=== PATIENT | female | born 1995 ===

== ENCOUNTER 2017-07-13 09:04 | Emergency (ER) | payer MEDICAID ==
[2017-07-13 09:10] VITALS: BMI 23.4
[2017-07-13 09:29] VITALS: BP 118/77
--- NOTE | 2017-07-13 09:38 | ED PDOC ---
HPI: CCC, URI, Sore Throat Time Seen by Provider: 07/13/17 09:07 Chief Complaint (Nursing): Flu-like Symptoms Chief Complaint (Provider): Cough History Per: Patient History/Exam Limitations: no limitations Onset/Duration Of Symptoms: Days (2) Additional Complaint(s): Pt. with cough, congestion, runny nose, body aches, weakness all over. No headaches, neck pain, vision changes, abd pain, dysuria. Took 1 ibuprofen at home last night that made the fever go to 98. No dyspnea or chest pain. Past Medical History Reviewed: Nursing Documentation, Vital Signs Vital Signs: Last Vital Signs Temp 98.6 F 07/13/17 14:09 Pulse 111 H 07/13/17 14:09 Resp 16 07/13/17 14:09 BP 118/77 07/13/17 09:11 Pulse Ox 98 07/13/17 14:28 - Medical History PMH: No Chronic Diseases - Surgical History Surgical History: No Surg Hx - Family History Family History: States: Unknown Family Hx - Living Arrangements Living Arrangements: With Family - Social History Alcohol: None Drugs: Denies - Home Medications Home Medications: Ambulatory Orders Medication Instructions Recorded Benzonatate [Tessalon Perles] 100 mg PO BID PRN 5 Days sgl 07/13/17 Ibuprofen [Motrin] 600 mg PO TID 7 Days tab 07/13/17 Oseltamivir Phosphate [Tamiflu] 75 mg PO BID 5 Days capsule 07/13/17 - Allergies Allergies/Adverse Reactions: Allergies Allergy/AdvReac Type Severity Reaction Status Date / Time No Known Allergies Allergy Verified 07/13/17 09:34 Review of Systems ROS Statement: Except As Marked, All Systems Reviewed And Found Negative Constitutional: Positive for: Fever, Weakness ENT: Positive for: Nose Pain, Nose Discharge, Nose Congestion, Throat Pain Respiratory: Positive for: Cough. Negative for: Shortness of Breath Gastrointestinal: Negative for: Nausea, Vomiting, Abdominal Pain, Diarrhea Genitourinary Female: Negative for: Dysuria Skin: Negative for: Rash Neurological: Positive for: Weakness Physical Exam - Reviewed Nursing Documentation Reviewed: Yes Vital Signs Reviewed: Yes - Physical Exam Appears: Positive for: Non-toxic, No Acute Distress Head Exam: Positive for: ATRAUMATIC, NORMAL INSPECTION, NORMOCEPHALIC Skin: Positive for: Normal Color, Warm, DRY Eye Exam: Positive for: EOMI, Normal appearance, PERRL ENT: Positive for: Nasal Congestion. Negative for: Pharyngeal Erythema, Tonsillar Exudate Neck: Positive for: Normal, Painless ROM, Supple Cardiovascular/Chest: Positive for: Tachycardia Respiratory: Positive for: Normal Breath Sounds. Negative for: Decreased Breath Sounds, Accessory Muscle Use, Wheezing Gastrointestinal/Abdominal: Positive for: Normal Exam, Bowel Sounds, Soft. Negative for: Tenderness Back: Positive for: Normal Inspection. Negative for: L CVA Tenderness, R CVA Tenderness Extremity: Positive for: Normal ROM. Negative for: Tenderness, Pedal Edema Neurologic/Psych: Positive for: Alert, Oriented - Laboratory Results Result Diagrams: 07/13/17 12:46 07/13/17 12:46 Interpretation Of Abn Labs: flu pos - ECG O2 Sat by Pulse Oximetry: 98 Pulse Ox Interpretation: Normal - Progress ED Course And Treament: 1200: HR and fever still elevated. Will need blood work and further eval. 1522: Stable. Feels much better. No pain. IV hydration 2L. Fu with pcp. AAOx3. Disposition - Clinical Impression Clinical Impression: Influenza, Dehydration - Patient ED Disposition Is Patient to be Admitted: No Counseled Patient/Family Regarding: Studies Performed, Diagnosis, Need For Followup, Rx Given - Disposition Referrals: [facility] [Outside] - 07/14/17 Disposition: Routine/Home Disposition Time: 15:23 Condition: STABLE Additional Instructions: Return if not better in 3 days. Prescriptions: Benzonatate [Tessalon Perles] 100 mg PO BID PRN 5 Days sgl PRN Reason: Cough Ibuprofen [Motrin] 600 mg PO TID 7 Days tab Oseltamivir Phosphate [Tamiflu] 75 mg PO BID 5 Days capsule Instructions: Influenza (ED), Dehydration (ED) Forms: [facility] (Surinamese), [facility] ED School/Work Excuse
[2017-07-13] MEDS ORDERED: Sodium Chloride 0.9% 1,000 ML IV STA ×2 (12:10→14:10)
--- NOTE | 2017-07-13 12:45 | RAD ---
HISTORY: cough COMPARISON: None available. TECHNIQUE: Chest, one view. FINDINGS: LUNGS: No focal consolidation. Please note that chest x-ray has limited sensitivity for the detection of pulmonary masses. PLEURA: No significant pleural effusion identified. No definite pneumothorax . CARDIOVASCULAR: Heart size appears within normal limits. OSSEOUS STRUCTURES: No acute osseous abnormality identified. VISUALIZED UPPER ABDOMEN: Unremarkable. OTHER FINDINGS: None. IMPRESSION: No focal consolidation, significant pleural effusion, or definite pneumothorax identified.
[2017-07-13 12:50] LABS: VENOUS BLOOD GAS BASE EXCESS -1.9 mmol/L (0.0-2.0); VENOUS BLOOD GAS PCO2 35 mmHg (40-60); VENOUS BLOOD GAS PO2 59 mm/Hg (30-55); VENOUS BLOOD PH 7.41 (7.32-7.43)
[2017-07-13 13:01] LABS: BASO % 0.4 % (0.0-2.0); EOS % 0.1 % (0.0-4.0); HEMOGLOBIN 12.2 g/dL (12.0-16.0); LYMPH # 0.6 K/uL (1.0-4.3); LYMPH % 10.1 % (20.0-40.0); MEAN CELL VOLUME 88.2 fl (81.0-99.0); MEAN CORPUSCULAR HEMOGLOBIN 28.9 pg (27.0-31.0); MEAN CORPUSCULAR HGB CONC 32.7 g/dL (33.0-37.0); MEAN PLATELET VOLUME 8.3 fl (7.2-11.7); MONO # 0.5 K/uL (0.0-0.8); MONO % 8.4 % (0.0-10.0); NEUT # 4.6 K/uL (1.8-7.0); RBC 4.22 Mil/uL (3.80-5.20); RED CELL DISTRIBUTION WIDTH 14.1 % (11.5-14.5); WHITE BLOOD COUNT 5.7 K/uL (4.8-10.8)
[2017-07-13 13:02] LABS: ALB/GLOB RATIO 1.1 (1.0-2.1); ALBUMIN 4.2 g/dL (3.5-5.0); ALT/SGPT 21 U/L (9-52); AST/SGOT 25 U/L (14-36); BLOOD UREA NITROGEN 6 mg/dl (7-17); CALCIUM 9.1 mg/dL (8.4-10.2); GFR AFRICAN-AMERICAN > 60; GFR NON-AFRICAN AMERICAN > 60
[2017-07-13 13:05] LABS: INR 1.3 (0.9-1.2); PARTIAL THROMBOPLASTIN TIME 33.1 Seconds (25.6-37.1); PROTHROMBIN TIME 14.3 Seconds (9.8-13.1)
[2017-07-13 14:09] VITALS: PULSE 111; RESP 16; TEMP 98.6
[2017-07-13 14:25] VITALS: O2SAT 98
--- NOTE | 2017-07-14 11:28 | CARD ---
APPROVED REPORT EKG Measurement Heart [id number] <Conclusion> Sinus tachycardia Nonspecific T wave abnormality Abnormal ECG
== END 2017-07-13 15:35 | disposition home or self-care (01) ==
LOC: H.ER 09:04
DX: J11.1 Influenza due to unidentified influenza virus with other respiratory manifestations (principal); E86.0 Dehydration
CPT/HCPCS: 71045; 80053; 81025; 82803; 84484; 85025; 85610; 85730; 87040; 87804; 93005; 99284; J7040

== ENCOUNTER 2017-07-14 15:39 | Emergency (ER) | payer BC, MEDICAID ==
[2017-07-14 15:39] VITALS: BMI 23.4
[2017-07-14] MEDS ORDERED: Sodium Chloride 0.9% 1,000 ML IV STA ×2 (16:21→18:52)
--- NOTE | 2017-07-14 16:49 | ED PDOC ---
HPI: General Adult Time Seen by Provider: 07/14/17 15:50 Chief Complaint (Nursing): Flu-like Symptoms Chief Complaint (Provider): COugh, congestion History Per: Patient History/Exam Limitations: no limitations Onset/Duration Of Symptoms: Days (3) Have you had recent travel within the past 21 days to any of the following countries: [place], [place], [place] or [place]?: No Current Symptoms Are (Timing): Still Present Additional History Per: Patient Additional Complaint(s): 22yo female, presents with complaints of fever with associated cough, congestion for the past 3 days. Patient states she was seen in this ER yesterday and was diagnosed with the flu, had labs done as well as a Chest X- Ray. She was prescribed tamiflu and instructed to take Motrin. She has been taking the medications and states her fever is only transiently relieved. She reports an episode of non bloody vomiting today and as episode of diarrhea as well. She also reports a sore throat since today. No shortness of breath, chest pain, abdominal pain, hematemesis, melena, bright red blood per rectum or recent sick contacts. Past Medical History Reviewed: Historical Data, Nursing Documentation, Vital Signs Vital Signs: Last Vital Signs Temp 98.8 F 07/14/17 19:37 Pulse 71 07/14/17 19:37 Resp 16 07/14/17 19:37 BP 100/58 L 07/14/17 19:37 Pulse Ox 98 07/14/17 19:37 - Medical History PMH: No Chronic Diseases - Surgical History Surgical History: No Surg Hx - Family History Family History: States: Unknown Family Hx - Home Medications Home Medications: Ambulatory Orders Medication Instructions Recorded Benzonatate [Tessalon Perles] 100 mg PO BID PRN 5 Days sgl 07/13/17 Ibuprofen [Motrin] 600 mg PO TID 7 Days tab 07/13/17 Oseltamivir Phosphate [Tamiflu] 75 mg PO BID 5 Days capsule 07/13/17 - Allergies Allergies/Adverse Reactions: Allergies Allergy/AdvReac Type Severity Reaction Status Date / Time No Known Allergies Allergy Verified 07/13/17 09:34 Review of Systems ROS Statement: Except As Marked, All Systems Reviewed And Found Negative Constitutional: Negative for: Fever, Chills ENT: Positive for: Nose Congestion Cardiovascular: Negative for: Chest Pain Respiratory: Positive for: Cough. Negative for: Shortness of Breath, Hemoptysis Gastrointestinal: Positive for: Vomiting, Diarrhea. Negative for: Melena, Hematochezia, Hematemesis Physical Exam - Reviewed Nursing Documentation Reviewed: Yes Vital Signs Reviewed: Yes - Physical Exam Appears: Positive for: Non-toxic, No Acute Distress Head Exam: Positive for: ATRAUMATIC, NORMAL INSPECTION, NORMOCEPHALIC Skin: Positive for: Normal Color, Warm, DRY Eye Exam: Positive for: EOMI, Normal appearance, PERRL ENT: Positive for: Normal ENT Inspection. Negative for: Pharyngeal Erythema, Tonsillar Exudate, Tonsillar Swelling Neck: Positive for: Supple Cardiovascular/Chest: Positive for: Regular Rate, Rhythm Respiratory: Positive for: Normal Breath Sounds. Negative for: Wheezing, Respiratory Distress Gastrointestinal/Abdominal: Positive for: Normal Exam, Soft. Negative for: Tenderness Back: Positive for: Normal Inspection Extremity: Positive for: Normal ROM Neurologic/Psych: Positive for: Alert, Oriented. Negative for: Motor/Sensory Deficits - Laboratory Results Result Diagrams: 07/14/17 16:35 07/14/17 16:35 - ECG O2 Sat by Pulse Oximetry: 97 (RA) Pulse Ox Interpretation: Normal - Progress Re-evaluation Time: 19:20 (Feeling much better. Had meal in ED. Repeat BP: 100/ 58) Condition: Re-examined, Improved Medical Decision Making Medical Decision Making: Impression: URI Plan: -- Rapid Strep -- Labs -- Tylenol 975 mg PO -- Toradol 30 mg IVP -- Zofran 4mg IVP -- IV Fluids Reassess Scribe Attestation: Documented by Andra Ramirez acting as a scribe for DAI Atwood Provider Attestation: All medical record entries made by the Scribe were at my direction and personally dictated by me. I have reviewed the chart and agree that the record accurately reflects my personal performance of the history, physical exam, medical decision making, and the department course for this patient. I have also personally directed, reviewed, and agree with the discharge instructions and disposition. Disposition - Clinical Impression Clinical Impression: Influenza - Patient ED Disposition Is Patient to be Admitted: No - Disposition Referrals: [facility] [Outside] Disposition: Routine/Home Disposition Time: 19:20 Condition: STABLE Instructions: Influenza (ED) Forms: [facility] ([place]an), [facility] ED School/Work Excuse
[2017-07-14 16:52] LABS: BASO % 0.4 % (0.0-2.0); HEMOGLOBIN 11.7 g/dL (12.0-16.0); LYMPH # 0.8 K/uL (1.0-4.3); LYMPH % 15.1 % (20.0-40.0); MEAN CELL VOLUME 86.9 fl (81.0-99.0); MEAN CORPUSCULAR HEMOGLOBIN 28.9 pg (27.0-31.0); MEAN CORPUSCULAR HGB CONC 33.3 g/dL (33.0-37.0); MEAN PLATELET VOLUME 8.4 fl (7.2-11.7); MONO # 0.5 K/uL (0.0-0.8); MONO % 9.5 % (0.0-10.0); NRBC % 0.1 % (0.0-0.0); RBC 4.05 Mil/uL (3.80-5.20); RED CELL DISTRIBUTION WIDTH 13.9 % (11.5-14.5); WHITE BLOOD COUNT 5.3 K/uL (4.8-10.8)
[2017-07-14 16:52] LABS: VENOUS BLOOD GAS PCO2 38 mmHg (40-60); VENOUS BLOOD GAS PO2 47 mm/Hg (30-55); VENOUS BLOOD PH 7.43 (7.32-7.43)
[2017-07-14 17:12] LABS: ALB/GLOB RATIO 1.2 (1.0-2.1); ALBUMIN 3.9 g/dL (3.5-5.0); ALT/SGPT 31 U/L (9-52); AST/SGOT 35 U/L (14-36); BLOOD UREA NITROGEN 5 mg/dl (7-17); CALCIUM 8.7 mg/dL (8.4-10.2); GFR AFRICAN-AMERICAN > 60; GFR NON-AFRICAN AMERICAN > 60
[2017-07-14 19:17] LABS: SQUAMOUS EPITHIAL 9 /hpf (0-5); URINE BILIRUBIN NEGATIVE (NEGATIVE); URINE BLOOD SMALL (NEGATIVE); URINE CLARITY CLOUDY (Clear); URINE COLOR YELLOW (YELLOW); URINE GLUCOSE (UA) NEG (Normal); URINE LEUKOCYTE ESTERASE NEG Leu/uL (Negative); URINE PROTEIN 30 mg/dL (NEGATIVE); URINE UROBILINOGEN 0.2-1.0 mg/dL (0.2-1.0)
[2017-07-14 19:39] VITALS: BP 100/58; PULSE 71; RESP 16; TEMP 98.8
[2017-07-15 01:00] VITALS: O2SAT 97
== END 2017-07-14 19:47 | disposition home or self-care (01) ==
LOC: H.ER 15:39
DX: J11.1 Influenza due to unidentified influenza virus with other respiratory manifestations (principal); R19.7 Diarrhea, unspecified
CPT/HCPCS: 80053; 81003; 82803; 85025; 87040; 87070; 87430; 96361; 96374; 96375; 99282; J1885; J2405; J7040